=== PATIENT | female | born 1940 | race Caucasian/White ===

== ENCOUNTER 2018-05-14 10:03 | Day surgery (SDC) | END 2018-05-15 12:48 | disposition home or self-care (01) ==

== ENCOUNTER 2018-05-26 06:54 | Day surgery (SDC) | END 2018-05-26 11:17 | disposition home or self-care (01) ==

== ENCOUNTER 2018-06-24 09:41 | Day surgery (SDC) | END 2018-06-24 17:11 | disposition home or self-care (01) ==